=== PATIENT | male | born 1960 | race Caucasian/White ===

== ENCOUNTER 2020-09-15 08:30 | Outpatient (CLI) | payer BC ==
[2020-09-19] MEDS ORDERED: ANESTHESIA TRAY IN PYXIS 1 EA TRAY MC ONE (14:33)
== END 2020-09-15 23:50 | disposition home or self-care (01) ==
LOC: LAB 08:30
PROVIDERS: ATTEND Specialist
DX: Z01.812 Encounter for preprocedural laboratory examination (principal); Z20.828 Contact with and (suspected) exposure to other viral communicable diseases
CPT/HCPCS: 87426; C9803 ×2; U0003

== ENCOUNTER 2020-09-20 05:55 | Day surgery (SDC) | payer BC ==
[2020-09-20] MEDS ORDERED: methylPREDNISolone ACETATE 80 MG/ML VIAL ONE (06:32)
[2020-09-20] MEDS ORDERED: ANESTHESIA TRAY IN PYXIS 1 EA TRAY MC ONE (06:32)
[2020-09-20] MEDS ORDERED: LIDOCAINE 1% INJ 50 ML MDV IJ ONE (06:32)
[2020-09-20] MEDS ORDERED: FENTANYL PF 100MCG/2ML AMPUL ONE (07:40)
== END 2020-09-20 08:55 | disposition home or self-care (01) ==
LOC: DS 05:55
PROVIDERS: ATTEND Specialist
DX: S83.231A Complex tear of medial meniscus, current injury, right knee, initial encounter (principal); S83.281A Other tear of lateral meniscus, current injury, right knee, initial encounter; X58.XXXA Exposure to other specified factors, initial encounter; Y93.89 Activity, other specified; Y92.89 Other specified places as the place of occurrence of the external cause; Y99.8 Other external cause status; M94.261 Chondromalacia, right knee; I10 Essential (primary) hypertension; E11.9 Type 2 diabetes mellitus without complications; Z79.899 Other long term (current) drug therapy
CPT/HCPCS: 29880; 82962; A4217; A6253; J0690; J1040; J1100; J2405; J2704; J3010; J3490 ×2